=== PATIENT | male | born 1970 | race Caucasian/White ===

== ENCOUNTER 2021-04-03 21:12 | Emergency (ER) | payer OTHER ==
[2021-04-03 21:39] VITALS: BP 151/86; PULSE 108
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
--- NOTE | 2021-04-04 06:06 | CT ---
CT abdomen and pelvis Technique: Multiple axial sections were obtained from above the dome of the diaphragm inferiorly through the pubic symphysis. Intravenous and oral contrast were utilized. Delayed images were also obtained through the abdomen and pelvis. Reconstructed coronal and sagittal images were obtained. Comparison: No prior abdominal imaging is available. Findings: Visualized lung bases show nothing acute. Liver contains no focal parenchymal abnormality. Spleen size is normal. Adrenal glands show no nodule. Pancreas is within normal limits. Small nodule is noted medial to the spleen compatible with accessory splenic tissue. Gallbladder contains no calcified gallstones. Abdominal aorta shows no aneurysm. No retroperitoneal adenopathy or mesenteric abnormalities are seen. Kidneys show symmetric contrast enhancement with no hydronephrosis or mass. Appendix is seen which is normal. No pelvic mass or adenopathy is seen. Small fat-containing left inguinal hernia is noted. Delayed images show contrast excretion from both kidneys into nondilated ureters and into the bladder. Slight increased stool is noted within the colon. Bone window settings were reviewed which show no acute osseous abnormality. Impression: 1. Small left-sided fat-containing inguinal hernia. 2. Mild increased stool throughout the colon. 3. Nothing acute is otherwise seen on CT study of the abdomen and pelvis. Diagnostic code #2 I agree with preliminary report from [facility], finalized on 04/04/21, 2:34 AM SENIOR SUPPLY CHAIN ANALYST
== END 2021-04-04 02:53 | disposition home or self-care (01) ==
LOC: JD.ED 21:12
DX: R10.84 Generalized abdominal pain (principal); E11.9 Type 2 diabetes mellitus without complications; Z79.84 Long term (current) use of oral hypoglycemic drugs; Z88.8 Allergy status to other drugs, medicaments and biological substances
CPT/HCPCS: 36415; 74177; 74177-26; 80053; 85025; 85610; 99284; 99284-25